=== PATIENT | female | born 1995 | race Caucasian/White ===

== ENCOUNTER 2019-08-25 10:54 | Observation (INO) ==
[2019-08-25 11:01] VITALS: BMI 19.8
[2019-08-25] MEDS ORDERED: NS 1000 ML 1,000 ML IV ONE (11:46)
[2019-08-25] MEDS ORDERED: PROTONIX INJ 40 MG VIAL IVP ONE (11:52)
[2019-08-25] MEDS ORDERED: MORPHINE SULFATE INJ 4 MG IVP ONE (11:52)
[2019-08-25] MEDS ORDERED: ZOFRAN INJ 4 MG VIAL IVP ONE (11:52)
[2019-08-25] MEDS ORDERED: NS 1000 ML 1,000 ML ONE (11:56)
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
[2019-08-25] MEDS ORDERED: ZOFRAN INJ 4 MG VIAL ONE (11:57)
[2019-08-25] MEDS ORDERED: PROTONIX INJ 40 MG VIAL ONE (11:57)
[2019-08-25] MEDS ORDERED: MORPHINE SULFATE INJ 2 MG INJ ONE ×2 (11:58)
[2019-08-25 12:02] LABS: BASOPHILS # (AUTO) 0.1 X10^3/uL (0.0-0.1); BASOPHILS % (AUTO) 0.6 % (0.2-1.0); EOSINOPHILS % (AUTO) 0.4 % (0.9-2.9); HEMATOCRIT 41.2 % (36.0-47.0); LYMPHOCYTES # (AUTO) 1.5 X10^3/uL (1.3-2.9); MEAN CORPUSCULAR HEMOGLOBIN 27.7 pg (27.0-34.0); MEAN CORPUSCULAR HGB CONC 34.1 g/dL (33.0-35.0); MEAN CORPUSCULAR VOLUME 81.4 fL (80.0-100.0); MEAN PLATELET VOLUME 9.2 fL (7.4-11.0); MONOCYTES # (AUTO) 0.5 x10^3/uL (0.3-0.8); MONOCYTES % (AUTO) 5.8 % (0.0-13.0); NEUTROPHILS # (AUTO) 6.9 x10^3/uL (2.2-4.8); NEUTROPHILS % (AUTO) 76.2 % (42.0-75.0); PLATELET COUNT 256 X10^3/uL (150.0-450.0); RED BLOOD COUNT 5.06 X10^6/uL (3.5-5.4); RED CELL DISTRIBUTION WIDTH 13.1 % (11.6-16.5)
[2019-08-25 12:14] LABS: ALANINE AMINOTRANSFERASE 14 Units/L (12-78); ALBUMIN 4.4 g/dL (3.4-5.0); ALKALINE PHOSPHATASE 52 Units/L (46-116); AMYLASE 59 Units/L (25-115); ASPARTATE AMINO TRANSFERASE 10 Units/L (15-37); BLOOD UREA NITROGEN 10 mg/dL (7-18); CALCIUM 9.6 mg/dL (8.5-10.1); CARBON DIOXIDE 29.5 mmol/L (21-32); CHLORIDE 99 mmol/L (98-107); CREATININE 0.71 mg/dL (0.55-1.02); LIPASE 149 Units/L (73-393); SODIUM 136 mmol/L (136-145); TOTAL PROTEIN 8.3 g/dL (6.4-8.2); eGFR NON BLACK RACES > 60 (>60)
[2019-08-25 12:15] LABS: SERUM PREGNANCY TEST, QUAL NEGATIVE <10 mIU/mL
[2019-08-25 12:52] LABS: BILIRUBIN,URINE NEGATIVE (NEGATIVE); BLOOD/HEMOGLOBIN,URINE NEGATIVE (NEGATIVE); GLUCOSE, URINE NEGATIVE (NEGATIVE); KETONES,URINE 4+ (NEGATIVE); LEUKOCYTE ESTERASE ,URINE 1+ (NEGATIVE); NITRITES,URINE NEGATIVE (NEGATIVE); PROTEIN,URINE 1+ (NEGATIVE); UROBILINOGEN,URINE NORMAL (NORMAL)
[2019-08-25 12:59] LABS: APPEARANCE,URINE CLOUDY (CLEAR); BACTERIA,URINE TRACE /HPF (NEGATIVE); COLOR,URINE YELLOW (YELLOW); RBC,URINE NONE SEEN /HPF (0-3); SQUAMOUS EPITHELIAL CELL,UR FEW /HPF (NEGATIVE)
[2019-08-25 13:00] LABS: AMORPHOUS SEDIMENT,UR 3+ /HPF (NEGATIVE); MUCUS,URINE FEW /HPF (NEGATIVE)
--- NOTE | 2019-08-25 13:58 | US ---
HISTORYRUQ PAINSTUDYGALL BLADDERCOMPARISONNoneTECHNIQUEMultiple images of the right upper quadrant were obtained.FINDINGSThe liver measures 12.0 centimeters. Increased echogenicity throughout the liver suggest fatty infiltration. Correlate clinically as other causes of hepatic disease may produce a similar appearance. No definite shadowing echogenic stones are appreciated within the gallbladder. Gallbladder wall thickness is within normal limits measuring 2.6 millimeters. The common bile duct is within normal limits in caliber measuring 1.9 millimeters. The right kidney measures 10.6 x 3.7 x 4.9 centimeters. The right renal cortical thickness measures 1.8 centimeters. The proximal abdominal aorta measures 1.4 centimeters. The mid abdominal aorta measures 0.9 centimeters. The distal abdominal aorta measures 1.0 centimeters. The pancreas is incompletely visualized.IMPRESSIONSonographic findings of hepatic steatosis.Electronically signed by: NATY GRANT (Aug 25, 2019 13:57:32)
[2019-08-25] MEDS ORDERED: ATIVAN TAB 1 MG PO PRN (14:53)
[2019-08-25] MEDS: D5 1/2 NS 1000 ML 1,000 ML IV SCH (15:59)
[2019-08-25] MEDS: PROTONIX INJ 40 MG VIAL 80 MG in NS 100 ML IV 80 ML IV SCH (15:59)
[2019-08-25] MEDS: ZOFRAN INJ 4 MG VIAL IVP PRN (20:31)
[2019-08-25] MEDS: NORCO 5/325 MG TAB PO PRN (20:42)
[2019-08-26] MEDS: D5 1/2 NS 1000 ML 1,000 ML IV SCH ×2 (01:44→13:12)
[2019-08-26] MEDS: PROTONIX INJ 40 MG VIAL 80 MG in NS 100 ML IV 80 ML IV SCH ×2 (01:57→13:12)
[2019-08-26] MEDS: ZOFRAN INJ 4 MG VIAL IVP PRN ×2 (05:52→13:00)
[2019-08-26 06:44] LABS: BASOPHILS % (AUTO) 0.6 % (0.2-1.0); EOSINOPHILS # (AUTO) 0.1 x10^3/uL (0.0-0.2); EOSINOPHILS % (AUTO) 1.2 % (0.9-2.9); HEMATOCRIT 35.6 % (36.0-47.0); HEMOGLOBIN 12.1 g/dL (12.0-16.0); LYMPHOCYTES # (AUTO) 1.9 X10^3/uL (1.3-2.9); LYMPHOCYTES % (AUTO) 25.9 % (21.0-51.0); MEAN CORPUSCULAR HEMOGLOBIN 27.7 pg (27.0-34.0); MEAN CORPUSCULAR VOLUME 81.3 fL (80.0-100.0); MEAN PLATELET VOLUME 9.8 fL (7.4-11.0); MONOCYTES # (AUTO) 0.5 x10^3/uL (0.3-0.8); MONOCYTES % (AUTO) 7.1 % (0.0-13.0); NEUTROPHILS # (AUTO) 4.9 x10^3/uL (2.2-4.8); NEUTROPHILS % (AUTO) 65.2 % (42.0-75.0); PLATELET COUNT 234 X10^3/uL (150.0-450.0); RED BLOOD COUNT 4.38 X10^6/uL (3.5-5.4); RED CELL DISTRIBUTION WIDTH 13.2 % (11.6-16.5); WHITE BLOOD COUNT 7.4 X10^3/uL (3.6-10.0)
[2019-08-26 07:00] LABS: ALANINE AMINOTRANSFERASE 12 Units/L (12-78); ALBUMIN 3.6 g/dL (3.4-5.0); ALKALINE PHOSPHATASE 43 Units/L (46-116); ASPARTATE AMINO TRANSFERASE 7 Units/L (15-37); BLOOD UREA NITROGEN 6 mg/dL (7-18); CALCIUM 8.7 mg/dL (8.5-10.1); CARBON DIOXIDE 28.8 mmol/L (21-32); CHLORIDE 102 mmol/L (98-107); CREATININE 0.66 mg/dL (0.55-1.02); SODIUM 136 mmol/L (136-145); TOTAL PROTEIN 6.9 g/dL (6.4-8.2); eGFR NON BLACK RACES > 60 (>60)
[2019-08-26] MEDS ORDERED: DIPRIVAN VIAL 20 ML ONE (08:56)
[2019-08-26] MEDS ORDERED: NS 500 ML IV 500 ML IV ONE (09:02)
--- NOTE | 2019-08-26 09:21 | OR.IMMED ---
Immediate Post-Op Note - Immediate Post-Op Note Pre-Op Diagnosis: abdominal pain , vomiting , PUD Post-Op Diagnosis: mild gastritis. Procedure: EGD with Bx Surgeon/Shingle Cutter: Bennie Findings: mild gstritis Drains: NONE Condition: Stable (for biliary scan .)
--- NOTE | 2019-08-26 14:11 | NM ---
HISTORYAbdominal pain, nausea and vomiting.STUDYHIDA/HEPATOBILIARY SCAN W/EFCOMPARISONGallbladder ultrasound from August 25, 2019.TECHNIQUEMultiple scintigraphic images of the abdomen were obtained the intravenous administration of 5.2 mCi of technetium labeled Choletec. Following distention of the gallbladder with radiotracer, 8 oz of Ensure was administered. An estimated gallbladder ejection fraction was calculated based on the resulting physiologic response.FINDINGSHomogeneous uptake of radiotracer is seen throughout the liver. The intrabiliary ductal system is observed normally. The common hepatic and common bile duct are unremarkable with normal biliary-bowel transit. The gallbladder is observed to fill normally.After administration of Ensure, a gallbladder ejection fraction of 0% (normal > 35%) is observed.IMPRESSION1. Normal hepatobiliary imaging scan.2. Abnormal gallbladder ejection fraction of 0%. Clinical correlation for gallbladder dyskinesia cholecystitis is recommended.Electronically signed by: TERRANCE YU (Aug 26, 2019 14:10:10)
[2019-08-26] MEDS ORDERED: ZOFRAN INJ 4 MG VIAL IVP ONE (17:35)
[2019-08-26] MEDS ORDERED: PHENERGAN INJ 25 MG IM PRN (20:49)
[2019-08-26] MEDS: MORPHINE SULFATE INJ 2 MG INJ IVP PRN (21:57)
[2019-08-27] MEDS: D5 1/2 NS 1000 ML 1,000 ML IV SCH (00:23)
[2019-08-27] MEDS: PROTONIX INJ 40 MG VIAL 80 MG in NS 100 ML IV 80 ML IV SCH ×3 (00:23→21:24)
[2019-08-27] MEDS ORDERED: SUPRANE ONE (08:32)
[2019-08-27] MEDS ORDERED: TORADOL 30 MG VIAL ONE (08:32)
[2019-08-27] MEDS ORDERED: QUELICIN (OR ANECTINE) ONE (08:32)
[2019-08-27] MEDS ORDERED: VERSED ONE (08:32)
[2019-08-27] MEDS ORDERED: NEOSTIGMINE INJ ONE (08:32)
[2019-08-27] MEDS ORDERED: LTA KIT LIDOCAINE 4% ONE (08:32)
[2019-08-27] MEDS ORDERED: ROBINUL ONE (08:32)
[2019-08-27] MEDS ORDERED: XYLOCAINE 2 % (PLAIN) ONE (08:32)
[2019-08-27] MEDS ORDERED: ZOFRAN INJ 4 MG VIAL ONE (08:32)
[2019-08-27] MEDS ORDERED: DIPRIVAN VIAL ONE (08:32)
[2019-08-27] MEDS ORDERED: NORCURON INJ 10 MG VIAL ONE (08:32)
[2019-08-27] MEDS ORDERED: FENTANYL INJ 250 mcg ONE (08:43)
[2019-08-27] MEDS ORDERED: DECADRON INJ ONE (08:43)
[2019-08-27] MEDS ORDERED: LR 1000 ML IV 1,000 ML IV ONE (09:09)
[2019-08-27] MEDS ORDERED: ANCEF 1 GRAM IV PREMIX* 1 G/50 ML BAG IV ONE (09:26)
[2019-08-27] MEDS ORDERED: ANCEF VIAL 1 GRAM IVP ONE (09:40)
[2019-08-27] MEDS ORDERED: DECADRON INJ IV ONE (09:40)
[2019-08-27] MEDS ORDERED: FENTANYL INJ 250 mcg IVP ONE (09:40)
[2019-08-27] MEDS: LR 1000 ML IV 1,000 ML IV SCH ×3 (09:51→21:24)
[2019-08-27] MEDS ORDERED: BACTROBAN TOPICAL OINT ONE (09:52)
[2019-08-27] MEDS ORDERED: REGLAN INJ 10 MG VIAL IVP PRN (10:16)
[2019-08-27] MEDS ORDERED: BENADRYL INJ 50 MG VIAL IVP PRN (10:16)
[2019-08-27] MEDS ORDERED: ZOFRAN INJ 4 MG VIAL IVP PRN (10:16)
[2019-08-27] MEDS ORDERED: PHENERGAN INJ 25 MG IM PRN (10:16)
[2019-08-27] MEDS ORDERED: DILAUDID INJ ONE (10:49)
[2019-08-27] MEDS: DILAUDID INJ IVP PRN ×2 (12:34→15:00)
[2019-08-27] MEDS: MORPHINE SULFATE INJ 2 MG INJ IVP PRN ×2 (16:41→21:25)
[2019-08-28] MEDS: LR 1000 ML IV 1,000 ML IV SCH ×2 (06:25→10:12)
[2019-08-28] MEDS: NORCO 5/325 MG TAB PO PRN (07:08)
[2019-08-28] MEDS: PROTONIX INJ 40 MG VIAL 80 MG in NS 100 ML IV 80 ML IV SCH (07:09)
[2019-08-28] MEDS ORDERED: KLOR-CON PO PRN (07:31)
[2019-08-28] MEDS ORDERED: K-DUR TAB 20 MEQ PO PRN (07:31)
[2019-08-28] MEDS ORDERED: POTASSIUM CHL 60 MEQ/NS 0.45% 500 ML IV PRN (07:31)
[2019-08-28] MEDS ORDERED: K-RIDER 10 MEQ/NS 100 ML 10 MEQ/100 ML BAG IV PRN (07:31)
[2019-08-28] MEDS ORDERED: MICRO K EXTEN CAP 10 MEQ PO PRN (07:31)
[2019-08-28] MEDS ORDERED: POTASSIUM CHLORIDE LIQ 20 MEQ UDC PO PRN (07:31)
[2019-08-28] MEDS ORDERED: POTASSIUM CHL 40 MEQ/NS 0.45% 500 ML IV PRN (07:31)
[2019-08-28 09:25] LABS: BASOPHILS % (AUTO) 0.2 % (0.2-1.0); EOSINOPHILS # (AUTO) 0.1 x10^3/uL (0.0-0.2); EOSINOPHILS % (AUTO) 0.6 % (0.9-2.9); HEMATOCRIT 35.1 % (36.0-47.0); HEMOGLOBIN 11.9 g/dL (12.0-16.0); LYMPHOCYTES # (AUTO) 3.2 X10^3/uL (1.3-2.9); MEAN CORPUSCULAR HEMOGLOBIN 28.2 pg (27.0-34.0); MEAN CORPUSCULAR HGB CONC 33.9 g/dL (33.0-35.0); MEAN CORPUSCULAR VOLUME 83.2 fL (80.0-100.0); MEAN PLATELET VOLUME 9.9 fL (7.4-11.0); MONOCYTES # (AUTO) 0.5 x10^3/uL (0.3-0.8); MONOCYTES % (AUTO) 4.9 % (0.0-13.0); NEUTROPHILS # (AUTO) 6.9 x10^3/uL (2.2-4.8); NEUTROPHILS % (AUTO) 64.3 % (42.0-75.0); PLATELET COUNT 200 X10^3/uL (150.0-450.0); RED BLOOD COUNT 4.23 X10^6/uL (3.5-5.4); RED CELL DISTRIBUTION WIDTH 13.6 % (11.6-16.5); WHITE BLOOD COUNT 10.7 X10^3/uL (3.6-10.0)
[2019-08-28 09:38] LABS: ALANINE AMINOTRANSFERASE 17 Units/L (12-78); ALBUMIN 3.3 g/dL (3.4-5.0); ALKALINE PHOSPHATASE 40 Units/L (46-116); ASPARTATE AMINO TRANSFERASE 18 Units/L (15-37); BLOOD UREA NITROGEN 6 mg/dL (7-18); CARBON DIOXIDE 29.1 mmol/L (21-32); CHLORIDE 102 mmol/L (98-107); COR CA(FOR HYPOALB) 9.6 mg/dL (8.5-10.1); CREATININE 0.79 mg/dL (0.55-1.02); SODIUM 139 mmol/L (136-145); TOTAL PROTEIN 6.4 g/dL (6.4-8.2); eGFR NON BLACK RACES > 60 (>60)
[2019-08-28 10:11] VITALS: BP 109/64
[2019-08-28] MEDS ORDERED: MAG-OX TAB ONE (10:23)
[2019-08-28] MEDS ORDERED: MAG-OX TAB PO SCH (17:00)
== END 2019-08-28 10:25 | disposition home or self-care (01) ==
LOC: MED/SURG 10:56 → ER 10:56 → MED/SURG 14:40
PROVIDERS: ADMIT Surgery; ATTEND Surgery
DX: K76.0 Fatty (change of) liver, not elsewhere classified; R19.7 Diarrhea, unspecified; K81.1 Chronic cholecystitis; K82.8 Other specified diseases of gallbladder; R11.2 Nausea with vomiting, unspecified; R10.11 Right upper quadrant pain; K29.60 Other gastritis without bleeding
CPT/HCPCS: 36415; 76705; 78227; 80053; 81001; 82150; 83690; 83735; 84703; 85025; 96360; 96361; 96365; 96372; 96374; 96375; 99284; A4216; A4222; C9113; G0378; J0330; J0690; J1100; J1170; J1885; J2250; J2270; J2405; J2550; J2704; J2710; J3010; J3490; J7030; J7050; J7120; S5010